=== PATIENT | male | born 1995 | race Caucasian/White ===

== ENCOUNTER → 2017-01-09 | Outpatient (CLI) | payer MEDICAID ==
[~2017-01-09] MED LIST: AMOXICILLI400 MG/51 PO; MULTI VITAMINS1 TAB PO
== END | disposition home or self-care (01) ==
LOC: CARD 10:08
DX: Z01.818 Encounter for other preprocedural examination (principal)

== ENCOUNTER → 2017-01-14 | Day surgery (SDC) | payer MEDICAID ==
[~2017-01-14] VITALS: Wt 49.0 kg
[~2017-01-14] MED LIST changes: +TYLENOL WITH CO1 TA1 PO
--- NOTE | ~2017-01-14 | O ---
[place], [place] OPERATIVE NOTE NAME: JOSELIN DAMON UNIT #: [id number] ROOM: DOCTOR: AVTAR GILLIS DMD BIRTHDATE: [birth year] DOS: 01/16/2017 PREOPERATIVE DIAGNOSES: Caries autism and anxiety. POSTOPERATIVE DIAGNOSES: Caries autism and anxiety. ANESTHESIA: General anesthesia with endotracheal intubation. FLUIDS: Minimal. ESTIMATED BLOOD LOSS: Minimal. COMPLICATIONS: None. CONDITION: To PACU, stable. DESCRIPTION OF PROCEDURE: The patient was brought to the OR and placed in supine position. IV and EKG lines were placed. Endotracheal intubation and general anesthesia was administered. The patient was prepped and draped for oral procedures. Risks and benefits were explained to the patient's guardian prior to surgery. Clinical exam and x-rays taken determined caries #2, 4, 5, 6, 7, 11, 12, 13, 15, 18, 19, 20, 22, 28, 29, 30, 31 and 32. Prophylaxis and fluoride. Two Bitewings and four ____ were taken, sutured with 4-0 chromic lavaged x2. Throat pack removed. The patient left the OR in good condition and went to the PACU. AVTAR GILLIS DMD CM:OPRECORD:OPERATIVE NOTE [id number] AVTAR GILLIS DMD 01/16/17 1340 interface
[2017-01-14 11:04] VITALS: BP 100/86
[2017-01-14 13:50] VITALS: BP 130/88
[2017-01-14 14:03] VITALS: BP 130/80
== END | disposition home or self-care (01) ==
LOC: SDC 01-09 10:15
DX: K02.9 Dental caries, unspecified (principal); F41.9 Anxiety disorder, unspecified; F84.0 Autistic disorder; M41.9 Scoliosis, unspecified; H91.90 Unspecified hearing loss, unspecified ear